=== PATIENT | male | born 1990 | race Caucasian/White ===

== ENCOUNTER 2016-07-21 01:59 | Emergency (ER) | payer OTHER ==
[2016-07-21 03:20] LABS: HEMOGLOBIN 15.1 gm/dl (14.0-17.5); RED BLOOD COUNT 4.89 M/UL (4.20-5.50); WHITE BLOOD COUNT 13.2 K/UL (4.5-11.0)
[2016-07-21 03:42] LABS: BUN/CREATININE RATIO 14 (0-10)
== END 2016-07-21 07:00 | disposition home or self-care (01) ==
LOC: ER1 01:59
PROVIDERS: Student in an Organized Health Care Education/Training Program
DX: R10.31 Right lower quadrant pain (principal); E87.6 Hypokalemia; F17.210 Nicotine dependence, cigarettes, uncomplicated; T67.5XXA Heat exhaustion, unspecified, initial encounter; X58.XXXA Exposure to other specified factors, initial encounter
CPT/HCPCS: 36415; 70450; 71010; 80053; 80307; 81001; 82150; 82550; 82553; 83605; 83690; 83874; 84484; 85025; 87040; 87086; 93005; 96361; 96374; 99285; G0480; J2405; J7030; J7050; Q9962